=== PATIENT | female | born 1975 | race Caucasian/White ===

== ENCOUNTER → 2025-01-02 10:39 | Outpatient (REF) | payer OTHER, SELFPAY ==
[2025-01-02 11:56] LABS: Hematocrit 31.9 % (37.0-47.0); Hemoglobin 11.1 g/dL (12.0-16.0); Mean Corp Hgb Conc. 34.8 g/dL (33.0-37.0); Mean Corpuscular Volume 89.9 fL (81.0-99.0); Nucleated Red Blood Cells % 0 %; Platelet Count 325 10^3/uL (130-400); Red Cell Dist. Width 12.2 % (11.5-14.5)
[2025-01-02 12:40] LABS: ALT (SGPT) 97 U/L (0-35); AST (SGOT) 55 U/L (14-36); Albumin 4.3 g/dl (3.5-5.0); Alkaline Phosphatase 64 U/L (38-126); Blood Urea Nitrogen 14 mg/dl (7-17); Calcium 9.7 mg/dl (8.4-10.2); Carbon Dioxide 21 mmol/L (22-30); Chloride 106 mmol/L (98-107); Glucose 89 mg/dl (70-99); Magnesium 1.6 mg/dl (1.6-2.3); Potassium 4.6 mmol/L (3.5-5.1); Sodium 135 mmol/L (135-145); Total Protein 6.8 g/dl (6.3-8.2); eGFR > 60.00
[2025-01-02 12:44] LABS: C-Reactive Protein < 5.00 mg/L (0.0-10.00)
[2025-01-04 11:35] LABS: ANA, IgG Reflex to HEp-2 None Detected (None Detected)
== END ==
LOC: REG 10:39
PROVIDERS: FAMILY PHYSICIAN Internal Medicine
DX: K04.7 Periapical abscess without sinus (principal); M27.2 Inflammatory conditions of jaws; D86.89 Sarcoidosis of other sites
CPT/HCPCS: 36415; 80053; 83735; 85025; 85652; 86038; 86140; 86430; 87040